=== PATIENT | female | born 1965 | race Caucasian/White ===

== ENCOUNTER 2023-05-01 21:03 | Emergency (ER) | payer BC ==
[2023-05-01] MEDS ORDERED: predniSONE 20 MG TAB ONE (22:15)
[2023-05-01] MEDS ORDERED: predniSONE 10 MG TAB ONE (22:15)
[2023-05-01] MEDS ORDERED: Ipratropium/Albuterol 3 ML NEB ONE (22:15)
[2023-05-01] MEDS ORDERED: Azithromycin 250 MG TAB ONE (22:44)
== END 2023-05-01 22:50 | disposition home or self-care (01) ==
LOC: MADERS 21:03
DX: J06.9 Acute upper respiratory infection, unspecified (principal)
CPT/HCPCS: 71045; J7512; J7620